=== PATIENT | female | born 1940 | race Caucasian/White ===

== ENCOUNTER 2016-05-26 19:46 | Emergency (ER) | payer MEDICARE | END 2016-05-26 20:19 | disposition home or self-care (01) | LOC: MADERS 19:46 | DX: S00.86XA Insect bite (nonvenomous) of other part of head, initial encounter (principal); E03.9 Hypothyroidism, unspecified; E78.5 Hyperlipidemia, unspecified; E78.00 Pure hypercholesterolemia, unspecified; J45.909 Unspecified asthma, uncomplicated; G47.30 Sleep apnea, unspecified; W57.XXXA Bitten or stung by nonvenomous insect and other nonvenomous arthropods, initial encounter; Z79.899 Other long term (current) drug therapy | CPT/HCPCS: 99283 ==

== ENCOUNTER 2019-02-15 13:09 | Emergency (ER) | payer MEDICARE ==
[~2019-02-15 13:09] MED LIST: Iopamidol 370 76% 125 ML VIAL FS ONE
[2019-02-15 13:22] LABS: #Basophils 0.1 thou/uL (0.0-0.2); #Eosinphils 0.8 thou/uL (0.0-0.7); #Lymphocytes 2.2 thou/uL (1.20-3.40); #Monocytes 0.8 thou/uL (0.11-0.59); #Neutrophils 4.4 thou/uL (1.40-6.50); %Basophils 1.1 % (0.0-1.0); %Eosinophils 9.9 % (0.0-10.0); %Lymphocytes 26.8 % (21.0-51.0); %Monocytes 9.2 % (0.0-10.0); Hemoglobin 12.2 g/dL (12.0-16.0); Mean Corpuscular HGB CONC 32.2 g/dL (32.0-36.0); Mean Corpuscular Hemoglobin 32.1 pg (27.0-31.0); Mean Corpuscular Volume 99.7 fL (78.0-98.0); Mean Platelet Volume 10.4 fL (7.4-10.4); Platelet Count 167 thou/uL (130-400); RBC Distribution Width 11.3 % (11.5-14.5); White Blood Cell (WBC) Count 8.3 thou/uL (4.8-10.8)
[2019-02-15 13:30] LABS: PTT 28.3 SEC (22.9-36.1)
[2019-02-15 13:40] LABS: ALT (SGPT) 12 U/L (8-55); AST (SGOT) 20 U/L (5-34); Albumin 3.5 g/dL (3.4-4.8); Alkaline Phosphatase 70 U/L (40-110); Anion Gap 11 mmol/L (10-20); BUN (Urea Nitrogen) 10 mg/dL (9.8-20.1); Bilirubin, Total 0.3 mg/dL (0.2-1.2); Calc. Creatinine Clearance 0 mL/min (70-130); Calcium 8.2 mg/dL (7.8-10.44); Carbon Dioxide 25 mmol/L (23-31); Chloride 108 mmol/L (98-107); Estimated GFR-MDRD 66; Globulin 2.1 g/dL (2.4-3.5); Glucose 108 mg/dL (83-110); Potassium 3.6 mmol/L (3.5-5.1); Protein, Total 5.6 g/dL (6.0-8.3); Sodium 140 mmol/L (136-145)
[2019-02-15 13:42] LABS: CKMB 1.4 ng/mL (0-6.6); Troponin I 0.016 ng/mL (< 0.028)
--- NOTE | 2019-02-15 13:42 | CT ---
BRAIN CT WITHOUT IV CONTRAST: Date: 02/15/19 HISTORY: Stroke alert, weakness and numbness in fingers. FINDINGS: There is some atrophy and chronic white matter ischemic change. No focal mass or midline shift. No in tra or extra-axial hemorrhage. IMPRESSION: No mass or bleed, or other acute process. Atrophy and chronic white matter ischemic changes. Findings discussed with Dr. Gerard Cardoso in the emergency room at 1327 hours. CODE CR. POS: [facility]
--- NOTE | 2019-02-15 14:12 | CT ---
CTA BRAIN WITH AND WITHOUT CONTRAST: CT BRAIN WITH CONTRAST: CTA NECK WITH CONTRAST: INDICATION: Stroke. COMPARISON: None. TECHNIQUE: CT angiogram of the head and neck are performed in the axial plane. Three dimensional reformatted diallo ges are submitted for interpretation. FINDINGS: Pathologic enhancement: No pathologic enhancement the brain. CT NECK: Sinuses: Adequate aeration of the paranasal sinuses and mastoid air cells. Orbits: Bilateral ocular lens implants are appropriately located. Both globes are intact. Retrobulbar fat is preserved. Symmetric attenuation of the optic nerves and ocular rectus muscles. Salivary glands: Symmetric attenuation of the parotid and submandibular glands. Thyroid gland: 0.5 cm hyperdense nodule in the right thyroid lobe. Lymph nodes: No evidence of lymphadenopathy by size criteria. Paraspinal muscles: Symmetric attenuation of the sternocleidomastoid muscles. Appropriate attenuation of the paraspinal muscles. Cervical spine: Vertebral body height is maintained. No fracture. There are varying central canal sundar nosis or significant neural foraminal narrowing due to degenerative change. Limited evaluation by technique. Upper mediastinum and lung apices: No acute abnormality. Aorta: The visualized aorta has appropriate enhancement and luminal diameter. Right carotid artery: The origin of the right carotid artery has appropriate enhancement and luminal diameter. Innominate artery, common carotid artery, carotid bifurcation and internal carotid artery have appropriate enhancement and luminal diameter. Left carotid: The origin of the left carotid artery has appropriate enhancement and luminal diameter. The common carotid artery, carotid bifurcation and internal carotid artery have appropriate enhancement and luminal diameter. Subclavian arteries:Bilateral subclavian arteries are patent. Vertebral arteries:Vertebral arteries are patent throughout their course in the neck. Dominant left v ertebral artery. CTA BRAIN: Intracranial internal carotid arteries: Appropriate enhancement and luminal diameter. Anterior circulation: Appropriate enhancement and luminal diameter of the A1 and M1 segments. Proxima l A2 segments and proximal MCA branches have appropriate enhancement and luminal diameter. Intracranial vertebral arteries: Appropriate enhancement and luminal diameter. Visualized PICA artery origins are unremarkable. Posterior circulation: Both vertebral arteries supply a normal appearing basilar artery. Left P1 segm ent has appropriate enhancement and luminal diameter. Right [employer] has a origin. IMPRESSION: No hemodynamically significant stenosis, occlusion or aneurysmal formation. Transcribed Date/Time: 02/15/2019 2:22 PM
[2019-02-15] MEDS ORDERED: Aspirin Chewable 81 MG TAB ONE (14:17)
== END 2019-02-15 14:35 | disposition short-term general hospital (02) ==
LOC: MADERS 13:09
DX: G45.9 Transient cerebral ischemic attack, unspecified (principal); M79.7 Fibromyalgia; K21.9 Gastro-esophageal reflux disease without esophagitis; G47.30 Sleep apnea, unspecified; E03.9 Hypothyroidism, unspecified; E78.5 Hyperlipidemia, unspecified; E78.00 Pure hypercholesterolemia, unspecified; J45.909 Unspecified asthma, uncomplicated
CPT/HCPCS: 36416; 70450; 70496; 70498; 80053; 82553; 84484; 85025; 85610; 85730; 93005; Q9967